=== PATIENT | female | born 1990 | race Caucasian/White ===

== ENCOUNTER 2020-05-18 23:24 | Emergency (ER) | payer MEDICAID, SELFPAY ==
[~2020-05-18] VITALS: Ht 154.9 cm; Wt 90.7 kg
[2020-05-18 23:26] VITALS: Ht 154.9 cm; Wt 90.7 kg
[2020-05-19 01:51] VITALS: BP 118/71
== END 2020-05-19 01:51 | disposition home or self-care (01) ==
LOC: ED 23:24
DX: R06.00 Dyspnea, unspecified (principal); E11.9 Type 2 diabetes mellitus without complications; R51.9 Headache, unspecified; R05 Cough; R06.02 Shortness of breath; R53.81 Other malaise; Z20.828 Contact with and (suspected) exposure to other viral communicable diseases
CPT/HCPCS: U0003